=== PATIENT | male | born 1950 | race Caucasian/White ===

== ENCOUNTER → 2016-08-18 | Outpatient (CLI) | payer MEDICARE, OTHER ==
[~2016-08-18] MED LIST: ACT35T PO; ALBU17AE3 IH; AMIT100T2 PO; APIX5TAB2 PO; ASCO-262 PO; BACL10TA PO; CALC-78 PO; CALC-80 PO; CEPH500C PO; CHOL100011 PO; CHOL50007 PO; CITA10TA; DCS100C PO; DESV50TA PO; DULO60CA6 PO; ESCI10TA PO; FENT-7 TD; FERR-57 PO; FEXO-104 PO; FEXO180T84 PO; FLUT1DIS26 IH; FOLI1TAB24 PO; GABA300S2 PO; GABA600T PO; GBPN300C PO; GBPN600T PO; GLUC1CAP37 PO; HYDR-3454 PO; HYDR-3720 PO; HYDR-3816 PO; HYDR1CAP2 PO; LEVA0.63 IH; LOSA50TA2 PO; LVF500T; MAGN250T7 PO; MELA3TAB12 PO; MIRT15TA6; MNTL10T PO; MONT10TA21 PO; MULT-608 PO; NAPR-243; NF-XOP-HFA INH; OMEP-10; OMEP20CA12 PO; OMEP40CA36 PO; PENT100C5 PO; PRCD5U; PROP1TAB77; ROPI1TAB40 PO; SOLI10TA4 PO; SOTA120T23 PO; SULF1TAB38; TELM40T PO; TIOT18CA IH; TRAZ-28 PO; TRH2T PO; TRM50T; ZINC50TA49 PO; ZOLP10TA PO
== END ==
LOC: PREOP 05:38
PROVIDERS: ATTEND Surgery
DX: Z01.818 Encounter for other preprocedural examination (principal); Z80.0 Family history of malignant neoplasm of digestive organs

== ENCOUNTER → 2016-08-22 | Day surgery (SDC) | payer MEDICARE, OTHER ==
[~2016-08-22] VITALS: Ht 185.4 cm; Wt 55.3 kg
[~2016-08-22] MED LIST changes: +FLUMAZENIL (ROMAZICON) 0.1 MG/ML 5 ML VIAL INJ PRN; +HURRICAINE EXT TUBE (BENZOCAINE) ONE; +HURRICAINE EXT TUBE (BENZOCAINE) XX PRN; +MIDAZOLAM 2 MG/2 ML (VERSED) VIAL ONE; +NALOXONE 0.4 MG/ML 1 ML (NARCAN) VIAL IVP PRN; +NS IV 500 ML 500 ML IV PRN; +NS IV 500 ML 500 ML ONE; +fentaNYL INJECTION 100 MCG/2 ML AMP ONE
[2016-08-22 07:28] VITALS: BP 139/90
[2016-08-22] MEDS: fentaNYL INJECTION 100 MCG/2 ML AMP IVP PRN ×2 (08:25→08:35)
[2016-08-22] MEDS: MIDAZOLAM 2 MG/2 ML (VERSED) VIAL IVP PRN ×2 (08:27→08:37)
--- NOTE | 2016-08-22 08:59 | Conscious Sedation/ASA ---
Conscious Sedation Pre-Proced ASA Class: 3 Airway Mallampati Classification: (tunica-biloxi appropriate class) I. II. III, IV Lungs Heart ASA score ASA 1: a normal healthy patient ASA 2: a patient with a mild systemic disease (mid diabetes, controlled hypertension, obesity ASA 3: a patient with a severe systemic disease that limits activity (angina , COPD, prior Myocardial infarction) ASA 4: a patient with an incapacitating disease that is a constant threat to life (CHF, renal failure) ASA 5: a moribund patient not expected to survive 24 hrs. (ruptured aneurysm) ASA 6: a declared brain patient whose organs are being harvested. For emergent operations, add the letter E after the classification Grade 2 Sedation Plan: Discussed options with patient/fam Note The patient is an appropriate candidate to undergo the planned procedure, sedation, and anesthesia. The patient immediately re-assessed prior to indication. DEANA ROSALES MD Aug 22, 2016 8:59 am
--- NOTE | 2016-08-22 09:00 | Endoscopy Procedure Report ---
Endoscopy Report Date: Aug 22, 2016 Preoperative Diagnosis: GERD. Heme-positive stools. Family history of colon cancer Study Performed: Upper Endoscopy, Colonoscopy Procedure Instrument: Endoscope Endo Procedure/Findings Findings 1.: Diverticulosis, Hiatal Hernia, Gastritis Recommendations: Recommendations: 1.: Colonscopy in 5 years DEANA ROSALES MD Aug 22, 2016 9:00 am
--- NOTE | 2016-08-22 09:02 | Discharge Inst-Simple/Standard ---
Discharge Inst-Standard Discharge Medications New, Converted or Re-Newed RX: Other Patient Instructions/Follow Up Plan of Care/Instructions/FU: follow up with his primary physician. Colonoscopy in 5 years Activity as Tolerated: Yes Discharge Diet: No Restrictions DEANA ROSALES MD Aug 22, 2016 9:02 am
[2016-08-22 09:15] VITALS: BP 139/90
[2016-08-22 09:28] VITALS: BP 128/80
[2016-08-22 09:40] VITALS: BP 128/80
--- NOTE | 2016-08-22 10:33 | OPERATIVE REPORT ---
PROCEDURE PHYSICIAN: DEANA ROSALES DATE OF PROCEDURE: 08/22/2016 PROCEDURES: 1. Upper GI endoscopy with antral biopsy. 2. Colonoscopy. SURGEON: Dr. Rosales. INDICATION FOR THE PROCEDURE: This gentleman came in for an upper endoscopy to evaluate symptoms of reflux, along with heme-positive stools. In addition, he reported a family history of colon cancer as well. Informed consent was obtained after reviewing the procedures in detail. DESCRIPTION OF PROCEDURE: 1. UPPER GI ENDOSCOPY/ANTRAL BIOPSY: He was placed in left lateral decubitus position and his vital signs were monitored. Conscious sedation was achieved using Versed and fentanyl. The flexible gastroscope was then introduced down the esophagus, past the stomach, into the proximal duodenum. FINDINGS: ESOPHAGUS: Quite tortuous with a short hiatal hernia. There was no inflammation. STOMACH: A few distal gastric erosions were found. DUODENUM: Normal. An antral biopsy was obtained for Helicobacter status. He tolerated the procedure well and was turned around in preparation for colonoscopy. IMPRESSION: 1. Symptoms of reflux disease. 2. Hiatal hernia. 3. Gastric erosions. 4. Helicobacter status pending. 2. COLONOSCOPY: Digital rectal examination was unremarkable. The colonoscope was then introduced into the rectum and advanced all the way up to the cecum. The scope was then withdrawn slowly and the mucosa examined in a systematic fashion. FINDINGS: 1. Very few sigmoid diverticula. 2. No polyps were found. He tolerated the procedures well and was taken back to the nursing area in a stable condition. IMPRESSION: 1. Heme positive stools. 2. No polyps. 3. Positive family history. 4. Recommend repeating in 5 years. Job ID: [id number] Dictated Date: 08/22/2016 08:59:03 Leader Tier Date: 08/22/2016 10:29:39 / dunia LOWRY
== END | disposition home or self-care (01) ==
LOC: ENDO 06:53
PROVIDERS: ATTEND Surgery
DX: K25.9 Gastric ulcer, unspecified as acute or chronic, without hemorrhage or perforation (principal); K57.90 Diverticulosis of intestine, part unspecified, without perforation or abscess without bleeding; K44.9 Diaphragmatic hernia without obstruction or gangrene; R19.5 Other fecal abnormalities; Z80.0 Family history of malignant neoplasm of digestive organs
CPT/HCPCS: 88305

== ENCOUNTER → 2016-11-22 | Outpatient (CLI) | payer MEDICARE, OTHER ==
[~2016-11-22] MED LIST changes: -FLUMAZENIL (ROMAZICON) 0.1 MG/ML 5 ML VIAL INJ PRN; -HURRICAINE EXT TUBE (BENZOCAINE) ONE; -HURRICAINE EXT TUBE (BENZOCAINE) XX PRN; -MIDAZOLAM 2 MG/2 ML (VERSED) VIAL ONE; -NALOXONE 0.4 MG/ML 1 ML (NARCAN) VIAL IVP PRN; -NS IV 500 ML 500 ML IV PRN; -NS IV 500 ML 500 ML ONE; -fentaNYL INJECTION 100 MCG/2 ML AMP ONE
--- NOTE | 2016-11-22 15:56 | Diagnostic Imaging Report ---
EXAMINATION: Supine view of the abdomen. INDICATION: Neurogenic bladder. FINDINGS: There is a large amount of fecal material in the colon and rectum with no significant dilatation. There are no significantly dilated small bowel loops seen. Calcifications projecting around the level of the diaphragms, more on the right side, may relate to calcified pleural plaques. There is mild right convexity scoliosis of the lumbar spine. IMPRESSION: Large amount of fecal material in the colon may relate to constipation. Calcified pleural plaques are seen along the diaphragms. 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 Dictated by: Dictated on workstation # [id number]
== END ==
LOC: RAD 14:56
PROVIDERS: ATTEND Urology
DX: N31.9 Neuromuscular dysfunction of bladder, unspecified (principal); K59.00 Constipation, unspecified
CPT/HCPCS: 74000

== ENCOUNTER → 2018-06-28 | Outpatient (CLI) | payer MEDICARE, OTHER ==
[~2018-06-28] MED LIST changes: +HYDR-34 PO; -HYDR-3816 PO; +TRAZ-189 PO; -TRAZ-28 PO
[2018-06-28 11:35] LABS: BUN/CREATININE RATIO 10; CREATININE SERUM 0.98 MG/DL (0.60-1.30); GFR ESTIMATED > 60
== END ==
LOC: LAB 10:49
PROVIDERS: ATTEND Nurse Practitioner Family
DX: J84.9 Interstitial pulmonary disease, unspecified (principal); J61 Pneumoconiosis due to asbestos and other mineral fibers; R06.00 Dyspnea, unspecified; R09.02 Hypoxemia; R63.4 Abnormal weight loss
CPT/HCPCS: 36415; 82565; 84520

== ENCOUNTER → 2018-07-20 | Outpatient (CLI) | payer MEDICARE, OTHER ==
[~2018-07-20] MED LIST changes: +CATHETER FLUSH 10 ML SYR IV PRN; +HOLD METFORMIN - RECEIVED CONTRAST 20 ML VIAL IV SCH; -HYDR-3454 PO; +HYDR-3455 PO; +IOHEXOL 350 MG/ML 100 ML (OMNIPAQUE 350) VIAL IV ONE; +NS 100 ML (IVPB) BAG IV ONE; +RT-ALBUTEROL SULF 2.5 MG/3 ML PRE-MIX VIAL INH ONE
[2018-07-20 11:40] LABS: BUN/CREATININE RATIO 8; CREATININE SERUM 1.12 MG/DL (0.60-1.30); GFR ESTIMATED > 60
--- NOTE | 2018-07-20 14:29 | Diagnostic Imaging Report ---
PROCEDURE: CT chest with contrast only. TECHNIQUE: Multiple contiguous axial images were obtained through the chest after administration of intravenous contrast. INDICATION: Dyspnea and pneumoconiosis. Correlation is made with the noncontrast CT chest from 08/14/2014. No axillary lymphadenopathy is detected. No definite hilar or mediastinal lymphadenopathy is identified. No pericardial or pleural fluid is detected. 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 Pulmonary parenchyma appears to be stable. There is a nodule right middle lobe measuring 7 mm. This is stable compared with prior examination from 2014. No new pulmonary nodules are detected. Upper abdomen is unremarkable. IMPRESSION: 1. 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 No thoracic lymphadenopathy or pleural fluid is seen. There is a stable 7 mm right middle lobe pulmonary nodule. Dictated by: Dictated on workstation # [id number]
== END ==
LOC: RT 10:58
PROVIDERS: ATTEND Nurse Practitioner Family
DX: J84.9 Interstitial pulmonary disease, unspecified (principal); J61 Pneumoconiosis due to asbestos and other mineral fibers; R06.00 Dyspnea, unspecified; R09.02 Hypoxemia; R63.4 Abnormal weight loss; R91.8 Other nonspecific abnormal finding of lung field
CPT/HCPCS: 36415; 71260; 82565; 84520; 94060; 94726; 94729

== ENCOUNTER → 2019-10-03 | Outpatient (CLI) | payer MEDICARE, OTHER ==
[~2019-10-03] MED LIST changes: -CATHETER FLUSH 10 ML SYR IV PRN; -HOLD METFORMIN - RECEIVED CONTRAST 20 ML VIAL IV SCH; -IOHEXOL 350 MG/ML 100 ML (OMNIPAQUE 350) VIAL IV ONE; -NS 100 ML (IVPB) BAG IV ONE; -OMEP20CA12 PO; +OMEP20CA18 PO; -RT-ALBUTEROL SULF 2.5 MG/3 ML PRE-MIX VIAL INH ONE; -TRAZ-189 PO; +TRZ50T PO
[2019-10-03 12:13] LABS: CREATININE SERUM 1.09 MG/DL (0.60-1.30); GFR ESTIMATED > 60
[2019-10-03 12:14] LABS: BUN/CREATININE RATIO 11
--- NOTE | 2019-10-03 13:16 | Diagnostic Imaging Report ---
EXAMINATION: CT Chest with intravenous contrast. TECHNIQUE: Multiple contiguous axial images were obtained through the chest after the uneventful administration of intravenous contrast. All CT scans use one or more of the following dose optimizing techniques: automated exposure control, MA and/or KvP adjustment based on a patient size and exam type, or iterative reconstruction. HISTORY: Interstitial lung disease COMPARISON: 07/20/2018 FINDINGS: Again seen are very extensive bilateral calcified pleural plaques consistent with prior asbestos exposure. There are no reticulations to indicate asbestosis. There is no pleural thickening along the mediastinal surface of the pleura. No pleural effusion. No pneumothorax. No suspicious nodules. Heart size is normal. There are no coronary artery calcifications. No pericardial effusion. Aorta is normal in caliber. There is no axillary or supraclavicular lymphadenopathy. There is no mediastinal lymphadenopathy. Limited views of the upper abdomen are unremarkable. There are no suspicious osseus lesions. IMPRESSION: 1. Stable extensive pleural plaques without reticulations to indicate asbestosis. Dictated by: Dictated on workstation # [id number]
== END ==
LOC: RAD 11:44
PROVIDERS: ATTEND Nurse Practitioner Family
DX: J84.9 Interstitial pulmonary disease, unspecified (principal); R91.8 Other nonspecific abnormal finding of lung field
CPT/HCPCS: 36415; 71260; 82565; 84520

== ENCOUNTER → 2019-12-16 | Outpatient (CLI) | payer MEDICARE, OTHER ==
[~2019-12-16] MED LIST changes: +CATHETER FLUSH 10 ML SYR IV PRN
--- NOTE | 2019-12-16 12:06 | Diagnostic Imaging Report ---
PROCEDURE: CT abdomen and pelvis without contrast. TECHNIQUE: Multiple contiguous axial images were obtained through the abdomen and pelvis without the use of intravenous contrast. Auto Exposure Controls were utilized during the CT exam to meet ALARA standards for radiation dose reduction. INDICATION: Prostate carcinoma. COMPARISON: There are no prior studies available for comparison. FINDINGS: Imaging through the lung bases does show extensive bilateral calcified pleural plaquing. No discrete pleural-based mass is detected. The liver is unremarkable. The gallbladder is surgically absent. No biliary ductal dilatation is seen. Pancreas and spleen are unremarkable. No adrenal mass is identified. The right kidney is unremarkable. Left kidney is surgically absent. The aorta is non-aneurysmal. No central retroperitoneal or mesenteric lymphadenopathy is seen. The bowel loops are nonobstructed. There is moderate stool in the colon. Patient has a suprapubic catheter. Bladder is decompressed. No inguinal or iliac lymphadenopathy is identified. Prostate is unremarkable. No osteoblastic lesions are seen. IMPRESSION: 1. No evidence of abdominal or pelvic lymphadenopathy or metastatic disease. 2. Bibasilar calcified pleural plaquing. Dictated by: Dictated on workstation # [id number]
--- NOTE | 2019-12-16 15:35 | Diagnostic Imaging Report ---
INDICATION: Prostate carcinoma. TECHNIQUE: The patient was administered 26.7 mCi of technetium 99m MDP intravenously and whole-body imaging was performed after a 3 hour delay. COMPARISON: No prior studies are available for comparison. FINDINGS: There is uptake of activity by the axial and appendicular skeleton. There is uptake by the right kidney with excretion to the urinary bladder. The left kidney is surgically absent. There is activity along the medial aspect of the left thigh, likely from the patient's suprapubic catheter bag. There is photopenia overlying both knees, consistent with bilateral total knee arthroplasties. There is some vague uptake involving the left 1st rib which is indeterminate. No other suspicious foci are seen. IMPRESSION: There is some mild to moderate uptake involving the left 1st rib, indeterminate. No other suspicious foci are detected. Continued followup would be recommended. Dictated by: Dictated on workstation # [id number]
== END ==
LOC: CARD 11:28
PROVIDERS: ATTEND Urology
DX: C61 Malignant neoplasm of prostate (principal); J92.9 Pleural plaque without asbestos
CPT/HCPCS: 74176; 78306; A9503

== ENCOUNTER 2020-04-24 05:36 | Outpatient (RCR) | payer MEDICARE, OTHER ==
[~2020-04-24] VITALS: Ht 185 cm; Wt 63.6 kg
[~2020-04-24 05:36] MED LIST changes: +APIX5TAB PO; +BUDE10.2 IH; +BUSP5TAB59 PO; -CATHETER FLUSH 10 ML SYR IV PRN; +CHOL20002 PO; +CLC600T PO; +DOCU100C37 PO; +DONE10TA41 PO; +FENT1PAT8 TD; +FERR-84 PO; +FEXO-46 PO; +GABA300C PO; +IMIP50TA4 PO; +MECL-149 PO; +MELA10CA2 PO; +NF-SOT120T PO; +OXYC5CAP18 PO; +PANT40TA52 PO; +PENT100C3 PO; +PROM12.511 PO; +ROPI1TAB PO; +RT-ALBUINH IH; +SOLI10TA7 PO; +SUCR1TAB PO; +TIOT18CA2 IH; +TRIH2TAB2 PO
== END 2020-04-24 11:50 | disposition home or self-care (01) ==
LOC: PREOP 05:36
PROVIDERS: ATTEND Surgery
DX: Z01.812 Encounter for preprocedural laboratory examination (principal); R10.13 Epigastric pain; Z20.828 Contact with and (suspected) exposure to other viral communicable diseases
CPT/HCPCS: 87635

== ENCOUNTER 2020-04-28 07:56 | Day surgery (SDC) | payer MEDICARE, OTHER ==
[~2020-04-28] VITALS: Ht 185.5 cm; Wt 63.6 kg
[2020-04-28] MEDS ORDERED: LACTATED RINGERS 1,000 ML IV STA (08:04)
[2020-04-28] MEDS ORDERED: LACTATED RINGERS 1,000 ML IV ONE (08:08)
[2020-04-28 08:15] VITALS: BP 112/86
[2020-04-28] MEDS ORDERED: HURRICAINE EXT TUBE (BENZOCAINE) XX PRN (08:15)
[2020-04-28] MEDS ORDERED: KETAMINE/NaCl 50 MG/5 ML SYRINGE (ED ONLY) ONE (08:16)
[2020-04-28] MEDS ORDERED: MIDAZOLAM 2 MG/2 ML (VERSED) VIAL ONE (08:16)
[2020-04-28] MEDS ORDERED: PROPOFOL INJECTION 50 ML IV ONE (08:16)
[2020-04-28] MEDS ORDERED: HURRICAINE EXT TUBE (BENZOCAINE) ONE (08:25)
--- NOTE | 2020-04-28 08:32 | Progress Note-Pre Operative ---
Pre-Operative Progress Note H&P Reviewed The H&P was reviewed, patient examined and no changes noted. Date Seen by Provider: Apr 28, 2020 Time Seen by Provider: 08: Date H&P Reviewed: Apr 28, 2020 Time H&P Reviewed: 08:31 Pre-Operative Diagnosis: n/v epigastric abd pain CAROLANN LEWIS DO Apr 28, 2020 08:31
[2020-04-28 08:55] VITALS: BP 89/58
[2020-04-28 09:00] VITALS: BP 91/58
[2020-04-28 09:05] VITALS: BP 110/67
[2020-04-28] MEDS ORDERED: FAMO-119 PO (09:09)
--- NOTE | 2020-04-28 09:09 | Discharge Inst-Simple/Standard ---
Discharge Inst-Standard Discharge Medications New, Converted or Re-Newed RX: Transmitted to Pharmacy Patient Instructions/Follow Up Plan of Care/Instructions/FU: 3 weeks Kenzie Activity as Tolerated: Yes Discharge Diet: Regular Diet CAROLANN LEWIS DO Apr 28, 2020 09:09
[2020-04-28 09:10] VITALS: BP 110/67
[2020-04-28 09:47] VITALS: BP 112/65
--- NOTE | 2020-04-28 12:29 | OPERATIVE REPORT ---
DATE OF SERVICE: 04/28/2020 PREOPERATIVE DIAGNOSES: Epigastric abdominal pain, nausea and vomiting. POSTOPERATIVE DIAGNOSES: Gastritis, gastroesophageal ulcer. SURGEON: Carolann Espino DO ANESTHESIA: Per NEUROCRITICAL CARE PHYSICIAN. PROCEDURE: EGD with biopsies. INDICATIONS: The patient is a 69-year-old male with recent prostatectomy afterwards he has been having more epigastric abdominal pain, nausea and vomiting. He understands risks and benefits of procedure and wished to proceed with procedure. Consent was signed in the chart. DESCRIPTION OF PROCEDURE: The patient was taken to the endoscopy suite, placed in left lateral recumbent position. Timeout was performed. Scope was inserted in mouth, down the esophagus, stomach and into the duodenum without difficulty. There were no polyps, masses or ulcerations within the duodenum. Scope was slowly retracted back into the stomach where it was further insufflated. Erythematous changes throughout. Biopsy of the antrum was obtained. Scope was retroflexed noting no other pathology. Scope was returned to its normal position, slowly withdrawn to the distal esophagus, which had the appearance of gastroesophageal ulcer. Biopsy of this area was obtained. Scope was then slowly retracted back to completely remove noting no other pathology. The patient tolerated procedure well without any complications, taken to recovery room in stable condition. RECOMMENDATIONS: The patient will continue on current medications. We will add Pepcid 20 mg b.i.d. The patient will follow up in 3 weeks to discuss pathology results and see how his symptoms are doing. Job ID: [id number] DocumentID: [id number] Dictated Date: 04/28/2020 09:30:35 Director Of User Experience Date: 04/28/2020 12:29:16 Dictated By: CAROLANN ESPINO DO
--- NOTE | 2020-04-28 13:34 | Anesthesia-General Post-Op ---
MAC Patient Condition Mental Status/LOC: Same as Preop Cardiovascular: Satisfactory Nausea/Vomiting: Absent Respiratory: Satisfactory Pain: Controlled Complications: Absent Post Op Complications Complications None Follow Up Care/Instructions Patient Instructions None needed. Anesthesiology Discharge Order Discharge Order Patient is doing well, no complaints, stable vital signs, no apparent adverse anesthesia problems. No complications reported per nursing. BOLA ARAUJO CRNA Apr 28, 2020 13:34
== END 2020-04-28 10:00 | disposition home or self-care (01) ==
LOC: ENDO 07:56
PROVIDERS: ATTEND Surgery
DX: K29.70 Gastritis, unspecified, without bleeding (principal); K21.00 Gastro-esophageal reflux disease with esophagitis, without bleeding; K25.9 Gastric ulcer, unspecified as acute or chronic, without hemorrhage or perforation; I48.91 Unspecified atrial fibrillation; F32.9 Major depressive disorder, single episode, unspecified; F41.9 Anxiety disorder, unspecified; J43.9 Emphysema, unspecified; Z79.51 Long term (current) use of inhaled steroids; Z79.01 Long term (current) use of anticoagulants; Z79.899 Other long term (current) drug therapy; Z86.73 Personal history of transient ischemic attack (TIA), and cerebral infarction without residual deficits; Z87.891 Personal history of nicotine dependence

== ENCOUNTER → 2020-06-09 | Outpatient (CLI) | payer MEDICARE, OTHER ==
[~2020-06-09] MED LIST changes: +FAMO-119 PO; -FOLI1TAB24 PO; +FOLI1TAB33 PO; -TRIH2TAB2 PO
--- NOTE | 2020-06-09 11:58 | Diagnostic Imaging Report ---
PROCEDURE: CT abdomen and pelvis without contrast. TECHNIQUE: Multiple contiguous axial images were obtained through the abdomen and pelvis without the use of intravenous contrast. Auto Exposure Controls were utilized during the CT exam to meet ALARA standards for radiation dose reduction. INDICATION: Prostate cancer. COMPARISON: 12/16/2019. FINDINGS: No pathologically enlarged abdominal, pelvic, mesenteric, or retroperitoneal lymph nodes. The pelvic sidewalls and ileo-inguinal lymph node chains are unremarkable. There is a suprapubic catheter in place. The solitary right kidney is unobstructed and stable. No bowel obstruction. The lung bases reveal chronic densely calcified benign pleural plaques. The liver, spleen, adrenals, and pancreas are unremarkable. The aortoiliac vessels are nonaneurysmal. There is a stable sclerotic lesion in the left ischium as well as lumbar spondylosis. No new bony pathology. IMPRESSION: Stable indeterminate left pelvic sclerotic bone lesion. No new bone lesion or evidence for soft tissue metastasis. No acute appearing abnormality. Dictated by: Dictated on workstation # [id number]
--- NOTE | 2020-06-09 15:46 | Diagnostic Imaging Report ---
INDICATION: Prostate cancer. COMPARISON: Bone scan of 12/16/2019. TECHNIQUE: The received 26.4 mCi of Tc 99M MDP and, after 3 hours, whole-body planar imaging was performed. FINDINGS: There is new abnormal uptake, fairly intense, associated with the T7 level seen best on the posterior views. There is linear abnormal uptake in the left 1st rib, substantially increased from the prior exam. Some uptake in the upper sternum appears similar to the prior exam. This could be a sternal lesion or shine through of the suspected T7 lesion. The midline pelvis is limited by urine contaminant. There is a solitary right kidney. The calvarium is unremarkable. IMPRESSION: 1. Progressive abnormal uptake in the left 1st rib and new mid thoracic abnormal spinal uptake. These findings are worrisome for increased metastatic disease. 2. An upper sternal lesion is not excluded. Dictated by: Dictated on workstation # [id number]
== END ==
LOC: CARD 10:43
PROVIDERS: ATTEND Urology
DX: C61 Malignant neoplasm of prostate (principal); M89.9 Disorder of bone, unspecified
CPT/HCPCS: 74176; 78306; A9503

== ENCOUNTER 2020-09-03 09:30 | Outpatient (RCR) | payer MEDICARE, OTHER ==
[2020-06-19 13:32] LABS: BASOPHILS % (AUTO) 0 % (0-10); EOSINOPHILS # (AUTO) 0.3 10^3/uL (0.0-0.3); EOSINOPHILS % (AUTO) 3 % (0-10); HEMATOCRIT 35 % (40-54); LYMPHOCYTES # (AUTO) 2.5 10^3/uL (1.0-4.0); LYMPHOCYTES % (AUTO) 26 % (12-44); MEAN CORPUSCULAR HEMOGLOBIN 27 pg (25-34); MEAN CORPUSCULAR HGB CONC 32 g/dL (32-36); MEAN CORPUSCULAR VOLUME 86 fL (80-99); MEAN PLATELET VOLUME 10.1 fL (9.0-12.2); MONOCYTES # (AUTO) 0.7 10^3/uL (0.0-1.0); MONOCYTES % (AUTO) 7 % (0-12); NEUTROPHILS # (AUTO) 5.9 10^3/uL (1.8-7.8); NEUTROPHILS % (AUTO) 62 % (42-75); PLATELET COUNT 439 10^3/uL (130-400); WHITE BLOOD COUNT 9.5 10^3/uL (4.3-11.0)
[2020-06-19 13:51] LABS: ALANINE AMINOTRANSFERASE 14 U/L (0-55); ALBUMIN 3.4 GM/DL (3.2-4.5); ALKALINE PHOSPHATASE 95 U/L (40-136); BILIRUBIN,TOTAL 0.2 MG/DL (0.1-1.0); BUN/CREATININE RATIO 9; CALCIUM 8.8 MG/DL (8.5-10.1); CARBON DIOXIDE 26 MMOL/L (21-32); CHLORIDE 96 MMOL/L (98-107); CREATININE SERUM 0.88 MG/DL (0.60-1.30); GFR ESTIMATED > 60; GLUCOSE 81 MG/DL (70-105); POTASSIUM 3.8 MMOL/L (3.6-5.0); SODIUM 133 MMOL/L (135-145); TOTAL PROTEIN 7.3 GM/DL (6.4-8.2)
[2020-07-07 15:02] LABS: BASOPHILS % (AUTO) 1 % (0-10); EOSINOPHILS # (AUTO) 0.5 10^3/uL (0.0-0.3); EOSINOPHILS % (AUTO) 7 % (0-10); HEMATOCRIT 34 % (40-54); HEMOGLOBIN 10.7 g/dL (13.3-17.7); LYMPHOCYTES # (AUTO) 1.7 10^3/uL (1.0-4.0); LYMPHOCYTES % (AUTO) 24 % (12-44); MEAN CORPUSCULAR HEMOGLOBIN 27 pg (25-34); MEAN CORPUSCULAR HGB CONC 32 g/dL (32-36); MEAN CORPUSCULAR VOLUME 85 fL (80-99); MEAN PLATELET VOLUME 10.6 fL (9.0-12.2); MONOCYTES # (AUTO) 0.6 10^3/uL (0.0-1.0); MONOCYTES % (AUTO) 8 % (0-12); NEUTROPHILS # (AUTO) 4.3 10^3/uL (1.8-7.8); NEUTROPHILS % (AUTO) 60 % (42-75); PLATELET COUNT 316 10^3/uL (130-400); WHITE BLOOD COUNT 7.1 10^3/uL (4.3-11.0)
[2020-07-07 15:25] LABS: ALANINE AMINOTRANSFERASE 10 U/L (0-55); ALBUMIN 3.3 GM/DL (3.2-4.5); ALKALINE PHOSPHATASE 106 U/L (40-136); BILIRUBIN,TOTAL 0.3 MG/DL (0.1-1.0); BUN/CREATININE RATIO 7; CALCIUM 8.5 MG/DL (8.5-10.1); CARBON DIOXIDE 29 MMOL/L (21-32); CHLORIDE 96 MMOL/L (98-107); GFR ESTIMATED > 60; GLUCOSE 95 MG/DL (70-105); POTASSIUM 3.3 MMOL/L (3.6-5.0); SODIUM 134 MMOL/L (135-145); TOTAL PROTEIN 7.6 GM/DL (6.4-8.2)
[2020-08-05 14:58] LABS: BASOPHILS # (AUTO) 0.1 10^3/uL (0.0-0.1); BASOPHILS % (AUTO) 1 % (0-10); EOSINOPHILS # (AUTO) 0.9 10^3/uL (0.0-0.3); EOSINOPHILS % (AUTO) 14 % (0-10); HEMATOCRIT 40 % (40-54); HEMOGLOBIN 12.8 g/dL (13.3-17.7); LYMPHOCYTES % (AUTO) 30 % (12-44); MEAN CORPUSCULAR HEMOGLOBIN 27 pg (25-34); MEAN CORPUSCULAR HGB CONC 32 g/dL (32-36); MEAN CORPUSCULAR VOLUME 84 fL (80-99); MEAN PLATELET VOLUME 10.6 fL (9.0-12.2); MONOCYTES # (AUTO) 0.6 10^3/uL (0.0-1.0); MONOCYTES % (AUTO) 8 % (0-12); NEUTROPHILS # (AUTO) 3.2 10^3/uL (1.8-7.8); NEUTROPHILS % (AUTO) 47 % (42-75); PLATELET COUNT 324 10^3/uL (130-400); WHITE BLOOD COUNT 6.7 10^3/uL (4.3-11.0)
[2020-08-05 15:22] LABS: ALANINE AMINOTRANSFERASE 12 U/L (0-55); ALBUMIN 3.6 GM/DL (3.2-4.5); ALKALINE PHOSPHATASE 95 U/L (40-136); BILIRUBIN,TOTAL 0.4 MG/DL (0.1-1.0); BUN/CREATININE RATIO 10; CALCIUM 9.1 MG/DL (8.5-10.1); CARBON DIOXIDE 27 MMOL/L (21-32); CHLORIDE 97 MMOL/L (98-107); CREATININE SERUM 0.83 MG/DL (0.60-1.30); GFR ESTIMATED > 60; GLUCOSE 77 MG/DL (70-105); POTASSIUM 3.3 MMOL/L (3.6-5.0); SODIUM 135 MMOL/L (135-145); TOTAL PROTEIN 7.7 GM/DL (6.4-8.2)
[2020-08-05 17:52] LABS: MAGNESIUM 1.8 MG/DL (1.6-2.4)
[~2020-09-03 09:30] MED LIST changes: +CALC600T91 PO; -CLC600T PO; -MELA3TAB12 PO; +MELA3TAB41 PO
[2020-09-03 09:42] LABS: BASOPHILS # (AUTO) 0.1 10^3/uL (0.0-0.1); BASOPHILS % (AUTO) 1 % (0-10); EOSINOPHILS # (AUTO) 0.8 10^3/uL (0.0-0.3); EOSINOPHILS % (AUTO) 9 % (0-10); HEMATOCRIT 41 % (40-54); HEMOGLOBIN 12.9 g/dL (13.3-17.7); LYMPHOCYTES # (AUTO) 2.9 10^3/uL (1.0-4.0); LYMPHOCYTES % (AUTO) 32 % (12-44); MEAN CORPUSCULAR HEMOGLOBIN 27 pg (25-34); MEAN CORPUSCULAR HGB CONC 32 g/dL (32-36); MEAN CORPUSCULAR VOLUME 87 fL (80-99); MEAN PLATELET VOLUME 10.9 fL (9.0-12.2); MONOCYTES # (AUTO) 0.6 10^3/uL (0.0-1.0); MONOCYTES % (AUTO) 7 % (0-12); NEUTROPHILS # (AUTO) 4.7 10^3/uL (1.8-7.8); NEUTROPHILS % (AUTO) 52 % (42-75); PLATELET COUNT 380 10^3/uL (130-400); WHITE BLOOD COUNT 9.2 10^3/uL (4.3-11.0)
[2020-09-03 10:05] LABS: ALANINE AMINOTRANSFERASE 9 U/L (0-55); ALBUMIN 3.7 GM/DL (3.2-4.5); ALKALINE PHOSPHATASE 99 U/L (40-136); BILIRUBIN,TOTAL 0.4 MG/DL (0.1-1.0); BUN/CREATININE RATIO 11; CALCIUM 9.1 MG/DL (8.5-10.1); CARBON DIOXIDE 23 MMOL/L (21-32); CHLORIDE 97 MMOL/L (98-107); CREATININE SERUM 0.88 MG/DL (0.60-1.30); GFR ESTIMATED > 60; GLUCOSE 135 MG/DL (70-105); POTASSIUM 3.7 MMOL/L (3.6-5.0); SODIUM 134 MMOL/L (135-145); TOTAL PROTEIN 7.5 GM/DL (6.4-8.2)
== END 2020-09-17 | disposition home or self-care (01) ==
LOC: ONC 09:30
PROVIDERS: ATTEND Internal Medicine Hematology & Oncology
DX: C61 Malignant neoplasm of prostate (principal); C79.51 Secondary malignant neoplasm of bone; R31.9 Hematuria, unspecified
CPT/HCPCS: 80053; 84153; 85025; G0463; 82306; 83735; 99204; 99213; 99214

== ENCOUNTER 2020-11-26 14:29 | Outpatient (RCR) | payer MEDICARE, OTHER ==
[2020-09-30 16:06] LABS: BASOPHILS # (AUTO) 0.1 10^3/uL (0.0-0.1); BASOPHILS % (AUTO) 1 % (0-10); EOSINOPHILS # (AUTO) 0.9 10^3/uL (0.0-0.3); EOSINOPHILS % (AUTO) 8 % (0-10); HEMATOCRIT 37 % (40-54); LYMPHOCYTES # (AUTO) 2.9 10^3/uL (1.0-4.0); LYMPHOCYTES % (AUTO) 26 % (12-44); MEAN CORPUSCULAR HEMOGLOBIN 28 pg (25-34); MEAN CORPUSCULAR HGB CONC 33 g/dL (32-36); MEAN CORPUSCULAR VOLUME 86 fL (80-99); MEAN PLATELET VOLUME 10.9 fL (9.0-12.2); MONOCYTES # (AUTO) 0.8 10^3/uL (0.0-1.0); MONOCYTES % (AUTO) 7 % (0-12); NEUTROPHILS # (AUTO) 6.5 10^3/uL (1.8-7.8); NEUTROPHILS % (AUTO) 58 % (42-75); PLATELET COUNT 402 10^3/uL (130-400); WHITE BLOOD COUNT 11.2 10^3/uL (4.3-11.0)
[2020-09-30 16:10] LABS: ALBUMIN 3.6 GM/DL (3.2-4.5); CHLORIDE 93 MMOL/L (98-107); SODIUM 134 MMOL/L (135-145)
[2020-09-30 16:11] LABS: CALCIUM 9.4 MG/DL (8.5-10.1)
[2020-09-30 16:12] LABS: GLUCOSE 97 MG/DL (70-105)
[2020-09-30 16:13] LABS: TOTAL PROTEIN 7.1 GM/DL (6.4-8.2)
[2020-09-30 16:14] LABS: BILIRUBIN,TOTAL 0.4 MG/DL (0.1-1.0); CARBON DIOXIDE 31 MMOL/L (21-32)
[2020-09-30 16:16] LABS: ALKALINE PHOSPHATASE 86 U/L (40-136); CREATININE SERUM 0.86 MG/DL (0.60-1.30); GFR ESTIMATED > 60
[2020-09-30 16:17] LABS: BUN/CREATININE RATIO 12
[2020-09-30 16:19] LABS: ALANINE AMINOTRANSFERASE 9 U/L (0-55)
[2020-11-26 14:42] LABS: BASOPHILS % (AUTO) 0 % (0-10); EOSINOPHILS # (AUTO) 0.5 10^3/uL (0.0-0.3); EOSINOPHILS % (AUTO) 6 % (0-10); HEMATOCRIT 38 % (40-54); HEMOGLOBIN 12.6 g/dL (13.3-17.7); LYMPHOCYTES # (AUTO) 2.5 10^3/uL (1.0-4.0); LYMPHOCYTES % (AUTO) 34 % (12-44); MEAN CORPUSCULAR HEMOGLOBIN 30 pg (25-34); MEAN CORPUSCULAR HGB CONC 33 g/dL (32-36); MEAN CORPUSCULAR VOLUME 92 fL (80-99); MEAN PLATELET VOLUME 10.7 fL (9.0-12.2); MONOCYTES # (AUTO) 0.6 10^3/uL (0.0-1.0); MONOCYTES % (AUTO) 7 % (0-12); NEUTROPHILS # (AUTO) 3.9 10^3/uL (1.8-7.8); NEUTROPHILS % (AUTO) 52 % (42-75); PLATELET COUNT 326 10^3/uL (130-400); WHITE BLOOD COUNT 7.5 10^3/uL (4.3-11.0)
[2020-11-26 15:04] LABS: ALBUMIN 3.5 GM/DL (3.2-4.5); BILIRUBIN,TOTAL 0.3 MG/DL (0.1-1.0); CALCIUM 8.9 MG/DL (8.5-10.1); CREATININE SERUM 0.82 MG/DL (0.60-1.30); POTASSIUM 3.8 MMOL/L (3.6-5.0)
== END 2020-12-29 | disposition home or self-care (01) ==
LOC: ONC 14:29
PROVIDERS: ATTEND Internal Medicine Hematology & Oncology
DX: C61 Malignant neoplasm of prostate (principal); C79.51 Secondary malignant neoplasm of bone; N50.811 Right testicular pain; J43.9 Emphysema, unspecified; F31.9 Bipolar disorder, unspecified; N18.30 Chronic kidney disease, stage 3 unspecified; Z90.79 Acquired absence of other genital organ(s); Z79.818 Long term (current) use of other agents affecting estrogen receptors and estrogen levels; Z87.891 Personal history of nicotine dependence
CPT/HCPCS: 80053; 84153; 85025; G0463; 99213

== ENCOUNTER 2021-04-07 12:35 | Outpatient (RCR) | payer MEDICARE, OTHER ==
[2021-01-27 14:06] LABS: BASOPHILS # (AUTO) 0.1 10^3/uL (0.0-0.1); BASOPHILS % (AUTO) 1 % (0-10); EOSINOPHILS # (AUTO) 0.8 10^3/uL (0.0-0.3); EOSINOPHILS % (AUTO) 9 % (0-10); HEMATOCRIT 35 % (40-54); HEMOGLOBIN 11.9 g/dL (13.3-17.7); LYMPHOCYTES % (AUTO) 35 % (12-44); MEAN CORPUSCULAR HEMOGLOBIN 31 pg (25-34); MEAN CORPUSCULAR HGB CONC 34 g/dL (32-36); MEAN CORPUSCULAR VOLUME 92 fL (80-99); MEAN PLATELET VOLUME 10.4 fL (9.0-12.2); MONOCYTES # (AUTO) 0.7 X 10^3 (0.0-1.0); MONOCYTES % (AUTO) 8 % (0-12); NEUTROPHILS # (AUTO) 4.1 X 10^3 (1.8-7.8); NEUTROPHILS % (AUTO) 47 % (42-75); PLATELET COUNT 274 10^3/uL (130-400); WHITE BLOOD COUNT 8.6 10^3/uL (4.3-11.0)
[2021-01-27 14:47] LABS: ALBUMIN 3.6 GM/DL (3.2-4.5); BILIRUBIN,TOTAL 0.4 MG/DL (0.1-1.0); CALCIUM 9.3 MG/DL (8.5-10.1); CREATININE SERUM 0.85 MG/DL (0.60-1.30); POTASSIUM 3.8 MMOL/L (3.6-5.0); TOTAL PROTEIN 6.9 GM/DL (6.4-8.2)
[2021-04-07 13:02] LABS: BASOPHILS # (AUTO) 0.1 10^3/uL (0.0-0.1); BASOPHILS % (AUTO) 1 % (0-10); EOSINOPHILS # (AUTO) 0.5 10^3/uL (0.0-0.3); EOSINOPHILS % (AUTO) 5 % (0-10); HEMATOCRIT 39 % (40-54); LYMPHOCYTES # (AUTO) 2.7 10^3/uL (1.0-4.0); LYMPHOCYTES % (AUTO) 30 % (12-44); MEAN CORPUSCULAR HEMOGLOBIN 31 pg (25-34); MEAN CORPUSCULAR HGB CONC 33 g/dL (32-36); MEAN CORPUSCULAR VOLUME 92 fL (80-99); MEAN PLATELET VOLUME 10.5 fL (9.0-12.2); MONOCYTES # (AUTO) 0.7 10^3/uL (0.0-1.0); MONOCYTES % (AUTO) 8 % (0-12); NEUTROPHILS # (AUTO) 5.2 10^3/uL (1.8-7.8); NEUTROPHILS % (AUTO) 57 % (42-75); PLATELET COUNT 239 10^3/uL (130-400); WHITE BLOOD COUNT 9.2 10^3/uL (4.3-11.0)
[2021-04-07 13:25] LABS: ALBUMIN 3.7 GM/DL (3.2-4.5); BILIRUBIN,TOTAL 0.4 MG/DL (0.1-1.0); CALCIUM 9.3 MG/DL (8.5-10.1); CREATININE SERUM 0.87 MG/DL (0.60-1.30); POTASSIUM 4.1 MMOL/L (3.6-5.0); TOTAL PROTEIN 6.6 GM/DL (6.4-8.2)
== END 2021-04-27 | disposition home or self-care (01) ==
LOC: ONC 12:35
PROVIDERS: ATTEND Internal Medicine Hematology & Oncology
DX: C61 Malignant neoplasm of prostate (principal); C79.51 Secondary malignant neoplasm of bone; N50.811 Right testicular pain; Z90.79 Acquired absence of other genital organ(s); Z79.818 Long term (current) use of other agents affecting estrogen receptors and estrogen levels
CPT/HCPCS: 80053; 84153; 85025; G0463; 99213